=== PATIENT | female | born 1995 | race African-American/Black ===

== ENCOUNTER 2023-04-30 13:40 | Emergency (ER) | payer OTHER ==
[~2023-04-30] VITALS: Ht 167.6 cm; Wt 59.9 kg
[2023-04-30 14:08] VITALS: O2SAT 98
== END 2023-04-30 14:18 | disposition short-term general hospital (02) ==
LOC: FSED 14:16
DX: R10.9 Unspecified abdominal pain (principal)
CPT/HCPCS: 99282